=== PATIENT | male | born 1960 | race Hispanic/Latino ===

== ENCOUNTER 2017-11-28 11:08 | Emergency (ER) | payer OTHER ==
[~2017-11-28 11:08] MED LIST: AEC81 PO; ATOR20TA65 PO; FLUO-126 PO; HYDR25TA PO; TRAZ-187 PO
[2017-11-28] MEDS ORDERED: IOHEXOL 350 MG/ML 100ML INFUS..BTL IV ONE (11:22)
[2017-11-28] MEDS ORDERED: ASPIRIN 325 MG TABLET ONE (11:34)
[2017-11-28 11:41] LABS: BASOPHILS % (AUTO) 1.1 % (0.0-5.0); EOSINOPHILS % (AUTO) 1.4 % (0.0-8.0); HEMATOCRIT 46.1 % (42-54); LYMPHOCYTES % (AUTO) 23.7 % (21.0-51.0); MEAN CORPUSCULAR HEMOGLOBIN 29.7 pg (27.0-33.0); MEAN CORPUSCULAR HGB CONC 33.1 g/dL (32.0-36.0); MEAN CORPUSCULAR VOLUME 89.7 fL (79-99); MONOCYTES % (AUTO) 11.9 % (3.0-13.0); NEUTROPHILS % (AUTO) 61.9 % (40.0-77.0); PLATELET COUNT (AUTO) 326 K/uL (130-400); RED BLOOD CELL COUNT(AUTO) 5.14 MIL/uL (4.50-6.20); RED CELL DISTRIBUTION WIDTH 14.6 % (11.0-15.5); WHITE BLOOD COUNT (AUTO) 11.9 K/uL (4.8-10.8)
[2017-11-28 11:57] LABS: PARTIAL THROMBOPLASTIN TIME 28.2 SEC (26.3-35.5)
[2017-11-28 11:58] LABS: CREATININE 0.9 mg/dL (0.5-1.5)
[2017-11-28 12:09] LABS: ALBUMIN 3.4 g/dL (3.5-5.0); BILIRUBIN,TOTAL 0.6 mg/dL (0.2-1.0)
[2017-11-28 12:11] LABS: INR 1.01 (0.85-1.15); PROTHROMBIN TIME 10.6 SEC (9.6-11.6)
== END 2017-11-28 14:33 | disposition home or self-care (01) ==
LOC: EDH 11:08
DX: R07.89 Other chest pain (principal); M54.6 Pain in thoracic spine; I25.10 Atherosclerotic heart disease of native coronary artery without angina pectoris; G89.29 Other chronic pain; M54.5 Low back pain; F10.10 Alcohol abuse, uncomplicated; E78.5 Hyperlipidemia, unspecified; M19.90 Unspecified osteoarthritis, unspecified site; Z95.1 Presence of aortocoronary bypass graft; Z87.891 Personal history of nicotine dependence; Z91.018 Allergy to other foods
CPT/HCPCS: 36415; 71045; 71275; 80053; 82550; 83874; 84484; 85025; 85610; 85730; 93005; 93970; 94761; 99285; Q9967

== ENCOUNTER 2019-01-23 07:14 | Day surgery (SDC) | payer OTHER ==
[2019-01-18 12:30] VITALS: BP 129/68
[2019-01-18 12:49] LABS: BASOPHILS % (AUTO) 0.8 % (0.0-5.0); EOSINOPHILS % (AUTO) 2.8 % (0.0-8.0); HEMATOCRIT 45.4 % (42-54); LYMPHOCYTES % (AUTO) 38.9 % (21.0-51.0); MEAN CORPUSCULAR HEMOGLOBIN 30.1 pg (27.0-33.0); MEAN CORPUSCULAR HGB CONC 33.6 g/dL (32.0-36.0); MEAN CORPUSCULAR VOLUME 89.3 fL (79-99); MONOCYTES % (AUTO) 10.3 % (3.0-13.0); NEUTROPHILS % (AUTO) 47.2 % (40.0-77.0); PLATELET COUNT (AUTO) 247 K/uL (130-400); RED BLOOD CELL COUNT(AUTO) 5.08 MIL/uL (4.50-6.20); RED CELL DISTRIBUTION WIDTH 14.4 % (11.0-15.5); WHITE BLOOD COUNT (AUTO) 8.6 K/uL (4.8-10.8)
[2019-01-18 12:55] LABS: CREATININE 0.8 mg/dL (0.5-1.5); POTASSIUM 4.2 mmol/L (3.5-5.1)
[2019-01-18 12:58] LABS: INR 0.97 (0.85-1.15); PARTIAL THROMBOPLASTIN TIME 27.3 SEC (26.3-35.5); PROTHROMBIN TIME 10.2 SEC (9.6-11.6)
[2019-01-18 14:01] LABS: APPEARANCE,URINE Clear (CLEAR); BILIRUBIN,URINE Negative (NEGATIVE); COLOR,URINE Yellow (YELLOW); GLUCOSE, URINE (UA) Negative (NEGATIVE); KETONES,URINE Negative (NEGATIVE); LEUKOCYTE ESTERASE ,URINE Negative (NEGATIVE); NITRATE,URINE Negative (NEGATIVE); OCCULT BLOOD,URINE Negative (NEGATIVE); PH,URINE 6.5 (5.0-8.0); PROTEIN,URINE POS 1+ mg/dL (NEGATIVE)
--- NOTE | 2019-01-22 10:16 | NUR ---
SPOKE WITH ALLIE MADISON REGARDING NO NEW ORDERS AT THIS TIME, PROCEED WITH PROCEDURE.
[2019-01-23] VITALS (10 sets, daily range): BP systolic 106–144; BP diastolic 42–82
[~2019-01-23] VITALS: Ht 172.7 cm; Wt 130.5 kg
[~2019-01-23 07:14] MED LIST changes: +SODIUM CHLORIDE 0.9% 500ML 500 ML IV SCH
[2019-01-23] MEDS ORDERED: ATOR-2 PO (08:01)
[2019-01-23] MEDS ORDERED: METO50TA18 PO (08:07)
[2019-01-23] MEDS ORDERED: POTA-79 PO (08:07)
[2019-01-23] MEDS ORDERED: GABA600T10 PO (08:07)
[2019-01-23] MEDS ORDERED: MV-M1TAB20 PO (08:08)
[2019-01-23] MEDS ORDERED: albuterol sulfate IH (08:11)
[2019-01-23] MEDS ORDERED: SODIUM CHLORIDE 0.9% 1000ML 1,000 ML IV ONE (08:44)
[2019-01-23] MEDS ORDERED: HEPARIN SODIUM 1000UNIT/ML 10ML VIAL ONE (14:21)
[2019-01-23] MEDS ORDERED: SODIUM BICARB 50MEQ 50ML VIAL ONE (14:21)
[2019-01-23] MEDS ORDERED: LIDOCAINE HCL 2% 20ML ONE (14:21)
[2019-01-23] MEDS ORDERED: NITROGLYCERIN 5 MG/ML 10 ML VIAL IV ONE (14:21)
[2019-01-23] MEDS ORDERED: IOHEXOL 350 MG/ML 100ML INFUS..BTL IV ONE ×2 (14:21→15:11)
[2019-01-23] MEDS ORDERED: IOHEXOL-350 50ML VIAL IV ONE (14:21)
[2019-01-23] MEDS ORDERED: MEPERIDINE-PF 25 MG/ML SYG ONE ×2 (14:51→14:58)
[2019-01-23] MEDS ORDERED: MIDAZOLAM HCL 1 MG/ML 2ML VIAL ONE ×2 (14:51→14:58)
[2019-01-23] MEDS ORDERED: IOHEXOL-350 75 ML VIAL IV ONE (15:11)
[2019-01-23] MEDS ORDERED: SODIUM CHLORIDE 0.9% 1000ML 1,000 ML IV SCH (15:34)
--- NOTE | 2019-01-23 17:17 | NUR ---
REPORT RECEIVED REPORT FROM ROBINSON DEL RIO. PT LYING IN BED. PT SITE TO RIGHT GROIN SOFT TO TOUCH, DRSG DRY AND INTACT. NO BLEEDING, OOZING NOTED TO SITE. INSTRUCTED ON IMPORTANCE OF KEEPING RIGHT LEG STRAIGHT AND NOT TO LIFT HEAD. VERBALIZED UNDERSTANDING. at bedside.
--- NOTE | 2019-01-23 17:53 | NUR ---
consult dr. brenner here to evaluate pt. talked to dr. bhardwaj . states pt to be discharged today and call dr. bhardwaj office tomorrow to schedule stent procedure with impella. both pt and pts verbalized understanding.
--- NOTE | 2019-01-23 19:24 | NUR ---
DISCHARGE ORAL AND WRITTEN DISCHARGE INSTRUCTIONS GIVEN TO PT AND PTS . PT STATES SHE WILL CALL DR. ALLEN OFFICE TO SCHEDULE APPT. NO OTHER QUESTIONS AT THIS TIME.
== END 2019-01-23 19:58 | disposition home or self-care (01) ==
LOC: DAH 07:14
PROVIDERS: ATTEND Internal Medicine Cardiovascular Disease
DX: I25.709 Atherosclerosis of coronary artery bypass graft(s), unspecified, with unspecified angina pectoris (principal); I10 Essential (primary) hypertension; M19.90 Unspecified osteoarthritis, unspecified site; Z79.82 Long term (current) use of aspirin; Z95.1 Presence of aortocoronary bypass graft; Z96.651 Presence of right artificial knee joint; Z96.641 Presence of right artificial hip joint; Z79.01 Long term (current) use of anticoagulants; Z79.899 Other long term (current) drug therapy; E78.5 Hyperlipidemia, unspecified
CPT/HCPCS: 36415; 71045; 80048; 81003; 85025; 85610; 85730; 93005; 93459; A4215; A4216; A4221; A4222; A4223 ×3; A4606; A4663; C1760; C1894; J1644; J2175 ×2; J2250 ×2; J3490 ×3; J7030 ×2; Q9965 ×2; Q9967 ×3; 99156; 99157

== ENCOUNTER → 2020-06-05 | Outpatient (CLI) | payer OTHER ==
[~2020-06-05] MED LIST changes: +ATOR-2 PO; -ATOR20TA65 PO; +CHOL200026 PO; +DULO30CA52 PO; -FLUO-126 PO; +FURO40TA5 PO; +GABA600T10 PO; +GARL1000 PO; -HYDR25TA PO; +METO50TA18 PO; +OMEG-148 PO; +OMEP20CA12 PO; +POTA99TA21 PO; +PRAS10TA6 PO; -SODIUM CHLORIDE 0.9% 500ML 500 ML IV SCH; +VITA-164 PO; +albuterol sulfate IH; +apple cider vinegar PO
== END | disposition home or self-care (01) ==
LOC: SHCH 10:30
PROVIDERS: ATTEND Internal Medicine Cardiovascular Disease
DX: I25.10 Atherosclerotic heart disease of native coronary artery without angina pectoris (principal)
CPT/HCPCS: 93306; 93880; 93925

== ENCOUNTER → 2020-06-06 | Outpatient (CLI) | payer OTHER ==
[~2020-06-06] VITALS: Ht 172.7 cm; Wt 126.1 kg
[~2020-06-06] MED LIST changes: +REGADENOSON 0.4 MG/5 ML PF SYG IVP SCH
== END | disposition home or self-care (01) ==
LOC: SHCH 08:36
PROVIDERS: ATTEND Internal Medicine Cardiovascular Disease
DX: I10 Essential (primary) hypertension (principal); I25.10 Atherosclerotic heart disease of native coronary artery without angina pectoris
CPT/HCPCS: 78452; 93017; 96374; A9500 ×2; J2785

== ENCOUNTER 2023-09-14 06:35 | Day surgery (SDC) | payer OTHER ==
[2023-09-12 14:27] VITALS: BP 140/78; PULSE 78; RESP 16; TEMP 97.8
[2023-09-12 14:29] LABS: BASOPHILS # (AUTO) 0.05 K/uL (0.00-0.20); BASOPHILS % (AUTO) 0.4 % (0.0-5.0); EOSINOPHILS # (AUTO) 0.36 K/uL (0.00-0.70); EOSINOPHILS % (AUTO) 3.2 % (0.0-8.0); HEMATOCRIT 43.6 % (42-54); IMMATURE GRANULOCYTE ABSOLUTE 0.03 K/uL (0-1); LYMPHOCYTES # (AUTO) 3.4 K/uL (1.0-4.8); LYMPHOCYTES % (AUTO) 30.1 % (21.0-51.0); MEAN CORPUSCULAR HEMOGLOBIN 29.9 pg (27.0-33.0); MEAN CORPUSCULAR HGB CONC 33.7 g/dL (32.0-36.0); MEAN CORPUSCULAR VOLUME 88.8 fL (79-99); MONOCYTES % (AUTO) 9.3 % (3.0-13.0); NEUTROPHILS # (AUTO) 6.3 K/uL (1.8-7.7); NEUTROPHILS % (AUTO) 56.7 % (40.0-77.0); PLATELET COUNT (AUTO) 351 K/uL (130-400); RED BLOOD CELL COUNT(AUTO) 4.91 MIL/uL (4.50-6.20); WHITE BLOOD COUNT (AUTO) 11.2 K/uL (4.8-10.8)
[2023-09-12 14:40] LABS: INR 1.05 (0.85-1.15); PROTHROMBIN TIME 11.3 SEC (9.6-11.6)
[2023-09-12 14:41] LABS: CREATININE 0.9 mg/dL (0.5-1.3); PARTIAL THROMBOPLASTIN TIME 28.5 SEC (26.3-35.5); POTASSIUM 4.3 mmol/L (3.5-5.1)
[2023-09-12 14:45] LABS: APPEARANCE,URINE CLEAR (CLEAR); BILIRUBIN,URINE NEGATIVE (NEGATIVE); COLOR,URINE YELLOW (YELLOW); GLUCOSE, URINE (UA) NEGATIVE (NEGATIVE); KETONES,URINE NEGATIVE (NEGATIVE); LEUKOCYTE ESTERASE ,URINE NEGATIVE Leu/uL (NEGATIVE); NITRATE,URINE NEGATIVE (NEGATIVE); OCCULT BLOOD,URINE NEGATIVE (NEGATIVE); PROTEIN,URINE 70 mg/dL (NEGATIVE); UROBILINOGEN,URINE 0.2 mg/dL (0.2-1.0)
[2023-09-12 15:02] LABS: B-TYPE NATRIURETIC PEPTIDE 16 pg/mL (0-100)
[2023-09-12 15:04] LABS: ADD UA MICROSCOPIC YES; MUCUS,URINE FEW LPF (None Seen); RBC,URINE 0-1 /HPF (0-1); SQUAMOUS EPITHELIAL CELL,UR RARE /HPF (0-2)
[~2023-09-14] VITALS: Ht 172.7 cm; Wt 122.6 kg
[2023-09-14] VITALS (11 sets, daily range): BP systolic 109–134; BP diastolic 55–78; PULSE 71–77; RESP 12–19; TEMP 97.4–97.9
[~2023-09-14 06:35] MED LIST changes: -CHOL200026 PO; -DULO30CA52 PO; +FLUO20CA30 PO; -FURO40TA5 PO; -GABA600T10 PO; -GARL1000 PO; -OMEG-148 PO; -OMEP20CA12 PO; -POTA99TA21 PO; -PRAS10TA6 PO; -REGADENOSON 0.4 MG/5 ML PF SYG IVP SCH; +SEMA0.258 SQ; +SPIR25TA6 PO; -VITA-164 PO; -apple cider vinegar PO
[2023-09-14] MEDS: 0.9%NACL 1000ML 1,000 ML IV ONE (07:15)
[2023-09-14] MEDS ORDERED: LIDOCAINE HCL 400MG/20ML VIAL ONE (09:21)
[2023-09-14] MEDS ORDERED: MEPERIDINE-PF 25 MG/ML SYG ONE ×3 (09:22→09:56)
[2023-09-14] MEDS ORDERED: NITROGLYCERIN 50MG VIAL ONE (09:22)
[2023-09-14] MEDS ORDERED: SODIUM BICARB 50MEQ 50ML VIAL 50 ML ONE (09:22)
[2023-09-14] MEDS ORDERED: IOHEXOL-350 75 ML VIAL IV ONE (09:22)
[2023-09-14] MEDS ORDERED: HEParin 10,000 UNIT/10ML (1,000 UNIT/ML) VIAL ONE (09:22)
[2023-09-14] MEDS ORDERED: IOHEXOL-350 50ML VIAL IV ONE (09:22)
[2023-09-14] MEDS ORDERED: HEParin-NS 1,000 UNIT/500 ML 1,000 ML IV ONE (09:22)
[2023-09-14] MEDS ORDERED: MIDAZOLAM HCL 1 MG/ML 2ML VIAL ONE ×3 (09:22→09:56)
[2023-09-14] MEDS ORDERED: niCARDIpine 25MG INJ IV ONE (09:30)
[2023-09-14] MEDS ORDERED: HEParin-NS 1,000 UNIT/500 ML 500 ML IV ONE (10:27)
== END 2023-09-14 16:45 | disposition home or self-care (01) ==
LOC: DAH 06:35
PROVIDERS: ATTEND Internal Medicine Cardiovascular Disease
DX: I25.118 Atherosclerotic heart disease of native coronary artery with other forms of angina pectoris (principal); R94.39 Abnormal result of other cardiovascular function study; I10 Essential (primary) hypertension; E66.9 Obesity, unspecified; G47.33 Obstructive sleep apnea (adult) (pediatric); Z95.1 Presence of aortocoronary bypass graft; E78.5 Hyperlipidemia, unspecified; G89.29 Other chronic pain; Z96.651 Presence of right artificial knee joint; Z96.641 Presence of right artificial hip joint; Z79.82 Long term (current) use of aspirin; Z79.01 Long term (current) use of anticoagulants; Z79.899 Other long term (current) drug therapy
CPT/HCPCS: 80048; 83880; 85025; 85610; 85730; 81001; 36415; 71045; 93005; 93458; 93571; 85347; C1769 ×3; C1887; C1894 ×3; A4649; C1760; J3490 ×4; J7030; J1644 ×3; J2250 ×3; J2175 ×3; Q9967; A4215; A4222; A4221; A4663; A4216; A4606; A4223 ×3; 99156; 99157